=== PATIENT | female | born 1975 ===

== ENCOUNTER 2019-03-14 10:48 | Outpatient (REF) | payer MEDICAID, SELFPAY ==
[2019-03-14 18:57] LABS: Iron 74 ug/dL (50-175); Total Iron Binding Capacity 292 ug/dL (250-450); Transferrin Sat 25 % (15-50)
[2019-03-14 19:12] LABS: Anion Gap 7.8 mmol/L (3-11); BUN 21 mg/dL (7-18); CO2 28.2 mmol/L (21.0-32.0); CREATININE 1.04 mg/dL (0.55-1.02); Calcium 8.6 mg/dL (8.5-10.1); Calculated LDL 94 mg/dL; Chloride 106 mmol/L (98-107); Cholesterol 164 mg/dL (50-200); Estimated GFR 57.84 (mL/min/1.73m2); Ferritin 31 ng/mL (8-388); Glucose 81 mg/dL (70-100); HDL Cholesterol 47 mg/dL (40-60); Potassium 3.8 mmol/L (3.5-5.1); Sodium 142 mmol/L (136-145); TSH (W/Ref FT4) 1.37 uIU/mL (0.36-3.74); Triglyceride 118 mg/dL (30-150)
[2019-03-14 19:35] LABS: HCT 42.2 % (36.0-46.0); HGB 13.9 g/dL (12.0-15.5); Mean Corp. HGB Concentration 32.9 g/dL (32.0-36.0); Mean Corpuscular Hemoglobin 29.7 pg (27.0-33.0); Mean Corpuscular Volume 90.2 fL (80-95); Mean Platelet Volume 10.7 fL (8.0-11.0); Platelet Count 277 x1000/uL (130-400); RBC 4.68 m/cumm (4.00-5.20); RBC Distribution Width 13.3 % (11.7-14.6); White Blood Cell Count 5.45 k/cumm (4.4-10.8)
== END 2019-03-14 11:08 ==
LOC: NCHCN 10:48
PROVIDERS: PCP Nurse Practitioner Family; Visit Provider Nurse Practitioner Family
DX: D64.9 Anemia, unspecified (principal); Z98.84 Bariatric surgery status; Z13.220 Encounter for screening for lipoid disorders
CPT/HCPCS: 80048; 80061; 85027; 82728; 83540; 83550; 84443

== ENCOUNTER 2021-01-29 15:57 | Outpatient (REF) | payer MEDICAID, SELFPAY ==
[2021-01-29 21:01] LABS: ESR 43 mm/hr (0-20)
[2021-01-30 17:33] LABS: Rheumatoid Factor <8.6 IU/mL (<12.0)
[2021-01-31 09:33] LABS: Cyclic Citrullinated Peptide <2.5 U/mL (<5.0)
[2021-01-31 15:16] LABS: ANA Interpretation Positive (Negative); ANA Titer Pattern 1:80 Speckled
== END 2021-01-29 15:58 | disposition home or self-care (01) ==
LOC: NCHCN 15:57
PROVIDERS: PCP Nurse Practitioner Family; Visit Provider Physician Assistant
DX: R79.82 Elevated C-reactive protein (CRP) (principal)
CPT/HCPCS: 85652; 86200; 86038; 86431